=== PATIENT | male | born 1955 | race Caucasian/White ===

== ENCOUNTER → 2016-07-11 | Day surgery (SDC) | payer OTHER ==
[~2016-07-11] VITALS: Ht 185.4 cm; Wt 102.1 kg
--- NOTE | 2016-07-14 17:06 | Operative Report ---
Operative/Inv Procedure Report Surgery Date: 07/11/16 Name of Procedure: Open mesh repair, 14 cm ventralex, of ventral incisional hernia with bilateral rectus musculo-fascial advancement flaps Pre-Operative Diagnosis: Ventral incisional hernia Post-Operative Diagnosis: Same reducible Estimated Blood Loss: scant Surgeon/Substation Mechanic: AMELIE ARREGUIN,KIN CURTIS Anesthesia: general endotracheal tube Operative/Procedure Note Note: Patient was placed on the OR table in the supine position. After successful induction of general anesthesia, another timeout was done, antibiotics given, the abdomen was clipped prepped and draped in the usual sterile fashion. The hernia was essentially beneath the epigastric portion of the laparotomy scar, measuring about 12 cm long. This attenuated scar was infiltrated local anesthetic and then the incision was made with a 10 blade, excising some of the scar. This was deepened with cautery through the subcutaneous fat and the herniated bowel and omentum and overlying sac were dissected circumferentially off the fascia, defining the true edges of the defect. To do this the thickened attenuated sac was mostly excised and the adherent omentum to the anterior peritoneal surface was also along with some adhesions between the sac and the peritoneum and the bowel, we needed to clear off beyond the edges of the defect to make room for the mesh. The rectus muscle itself was intact and well- developed, but at this point could not be pulled to the midline without significant tension. After clearing off all the edges we laid the dual sided elliptical ventral X mesh on the bowel, 14 cm. Then we would gently pull remnants of fascia over the mesh and tack it down in multiple places with short runs of 0 Maxon, interrupted 0 Vicryl in interrupted 2-0 Prolene sutures to tack the undersurface of the rectus to the mesh, trying to stay symmetric, some areas especially on the ends we were able to close all the way to the midline and some towards the middle still left mesh exposed. Then to create the advancement flaps I deliberately cut into the rectus sheath anteriorly about an inch off the medial edges all the way around and then you would mobilize that fascia to the midline and close it again with a combination of Maxon Prolene and Vicryl as mentioned above, the rectus muscle was advanced bilaterally to the midline, each side moving 3-4 cm each, covering both the defect and the mesh completely. Then this was covered by sewing together remnants of excised hernia sac and attenuated fascia, we also inserted a round Florencio-Patten drain on top of the muscle reconstruction but underneath the subcutaneous closure and then on top in the thin subcutaneous layer. The skin was reapproximated with vazquez having brought it together and a few areas with interrupted 3-0 Vicryl sutures subdermally. This was covered with gauze and tape the MRAIZA exited laterally and secured with a 3-0 nylon suture. EBL minimal lap and sponge counts correct wound expectancy clean IV fluids crystalloid complications none patient tolerated the procedure well was awakened extubated returned to the recovery room in satisfactory condition.
== END ==
LOC: STS 04:55
DX: K43.2 Incisional hernia without obstruction or gangrene (principal); K57.92 Diverticulitis of intestine, part unspecified, without perforation or abscess without bleeding
CPT/HCPCS: C1781; J0131; J0690; J2250